=== PATIENT | female | born 1995 | race Hispanic/Latino ===

== ENCOUNTER → 2023-04-04 | Emergency (ER) | payer SELFPAY ==
[2023-04-04 09:21] LABS: Absolute Lymphocytes (CBC) 0.9 K/uL (0.7-4.9); Hematocrit 37.2 % (36.0-45.0); MCV 89.3 fL (80-100); MPV 8.5 fL (7.6-11.3); Platelets 237 thou/uL (152-406); RBC Red Blood Cell Count 4.17 M/uL (3.86-4.86)
[2023-04-04 09:29] LABS: Specific Gravity 1.007 (1.005-1.030); Urine Bacteria 20-50 /HPF (<20); Urine Bilirubin NEGATIVE (Negative); Urine Blood 3+ (OVER) (Negative); Urine Clarity Extremely Turbid (Clear); Urine Color Light-Brown (Yellow); Urine Glucose NEGATIVE (Negative); Urine Protein 1+ (Negative); Urine RBC >50 /HPF (None Seen); Urine Urobilinogen Normal (Normal); Urine pH 5.5 (5.0-7.0)
[2023-04-04 09:53] LABS: Potassium 3.5 mEq/L (3.5-5.1)
--- NOTE | 2023-04-04 11:14 | RAD REPORT ---
EXAM DESCRIPTION: US - Transvaginal OB - 04/04/2023 10:10 am CLINICAL HISTORY: bleeding COMPARISON: No comparisons TECHNIQUE: Sonographic grayscale and color flow images of a first-trimester were obtained through approach. FINDINGS: A single live intrauterine is identified. [place]-rump length measures 46.6 millimeters, corresponding to gestational age of 11 weeks, 3 days. heart rate: 188 BPM. Normal yolk sac is visualized. Crescentic hypoechoic fluid collection anterior to the gestational sac, measuring 3.5 cm in greatest axial dimension and 7 mm in greatest thickness. Maternal ovaries are unremarkable. No free fluid. IMPRESSION: 1. Single live intrauterine . 2. Hypoechoic 3.5 x 0.7 cm fluid collection anterior to the gestational sac concerning for a small penny bchorionic hemorrhage. 3. Calculated gestational age: 11 weeks, 3 days. Estimated due date by ultrasound: 10/21/2023.
--- NOTE | 2023-04-04 11:21 | ER ---
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 Coronavirus screen: At this time, the client does not indicate any symptoms associated with coronavirus-19. Ebola Screen: No symptoms or risks identified at this time. Initial Sepsis Screen: Does the patient meet any 2 criteria? No. Patient's initial sepsis screen is negative. Does the patient have a suspected source of infection? No. Patient's initial sepsis screen is negative. Risk Assessment: Do you want to hurt yourself or someone else? Patient reports no desire to harm self or others. Onset of symptoms was April 04, 2023. 08:52 Method Of Arrival: Ambulatory kc6 08:52 Acuity: SUSANNA 3 kc6 Triage Assessment: 08:53 General: Appears in no apparent distress. comfortable, well groomed, well developed, kc6 Behavior is calm, cooperative, appropriate for age. Pain: Complains of pain in suprapubic area Quality of pain is described as crampy. EENT: No signs and/or symptoms were reported regarding the EENT system. Neuro: Level of Consciousness is awake, alert, obeys commands, Oriented to person, place, time, situation, Appropriate for age. Cardiovascular: Capillary refill < 3 seconds. Respiratory: Airway is patent Trachea midline Respiratory effort is even, unlabored, Respiratory pattern is regular, symmetrical. GI: No signs and/or symptoms were reported involving the gastrointestinal system. : Reports vaginal bleeding that is bright red, with clots, heavy flow since this AM. Derm: No signs and/or symptoms reported regarding the dermatologic system. Skin is intact, is healthy with good turgor, Skin is pink, warm \T\ dry. Musculoskeletal: No signs and/or symptoms reported regarding the musculoskeletal system. Circulation, motion, and sensation intact. Capillary refill < 3 seconds, Range of motion: intact in all extremities. 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 - Social history:: Smoking status: Patient denies any tobacco usage or history of. - Family history:: not pertinent. Screenin:55 [facility] ED Fall Risk Assessment (Adult) History of falling in the last 3 months, kc6 including since admission No falls in past 3 months (0 pts) Confusion or Disorientation No (0 pts) Intoxicated or Sedated No (0 pts) Impaired Gait No (0 pts) Mobility Assist Device Used No (0 pt) Altered Elimination No (0 pt) Score/Fall Risk Level 0 - 2 = Low Risk. Abuse screen: Denies threats or abuse. Denies injuries from another. Nutritional screening: No deficits noted. Tuberculosis screening: No symptoms or risk factors identified. Assessment: 08:55 Obstetrical Assessment: General assessment: awake and alert. Reassessment: please see the [facility] triage. 10:04 Reassessment: Patient appears in no apparent distress at this time. No changes from the [facility] previously documented assessment. Patient and/or family updated on plan of care and expected duration. Pain level reassessed. Patient is alert, oriented x 3, equal unlabored respirations, skin warm/dry/pink. 10:53 Reassessment: Patient appears in no apparent distress at this time. No changes from the [facility] previously documented assessment. Patient and/or family updated on plan of care and expected duration. Pain level reassessed. Patient is alert, oriented x 3, equal unlabored respirations, skin warm/dry/pink. 11:45 Reassessment: Patient appears in no apparent distress at this time. No changes from the [facility] previously documented assessment. Patient and/or family updated on plan of care and expected duration. Pain level reassessed. Patient is alert, oriented x 3, equal unlabored respirations, skin warm/dry/pink. Vital Signs: 08:52 BP 131 / 87; Pulse 95; Resp 16 S; Pulse Ox 99% on R/A; Weight 65.77 kg (R); Height 5 kc6 ft. 6 in. (R); 10:53 BP 122 / 95; Pulse 87; Resp 16 S; Pulse Ox 95% on R/A; kc6 08:52 Body Mass Index 23.40 (65.77 kg, 167.64 cm) kc6 ED Course: 08:44 Patient arrived in ED. rg4 08:48 Vivi Hills, RN is Primary Nurse. kc6 08:52 Arm band placed on Patient placed in an exam room, on a stretcher. ll1 08:53 Triage completed. kc6 08:55 Patient has correct armband on for positive identification. Bed in low position. Call kc6 light in reach. Side rails up X 1. Client placed on continuous cardiac and pulse oximetry monitoring. NIBP monitoring applied. 08:55 Patient maintains SpO2 saturation greater than 95% on room air. kc6 08:58 Martin Bañuelos MD is Attending Physician. rt 10:11 US Transvaginal Ob In Process Unspecified. EDMS 10:27 Ultrasound completed. Patient tolerated well. lc6 11:46 No provider procedures requiring assistance completed. IV discontinued, intact, kc6 bleeding controlled, No redness/swelling at site. Pressure dressing applied. Administered Medications: No medications were administered Medication: 11:46 VIS not applicable for this client. kc6 Outcome: 11:20 Discharge ordered by MD. rt 11:46 Discharged to home ambulatory, with significant other, kc6 11:46 Condition: good 11:46 Discharge instructions given to patient, significant other, Instructed on discharge instructions, follow up and referral plans. medication usage, Demonstrated understanding of instructions, follow-up care, medications, Prescriptions given X 1, 11:46 Patient left the ED. 6 Signatures: Dispatcher [employer] EDMS Jennifer Stanley rg4 Hilary Fox RN RN ll1 Vivi Hills, RN RN kc6 Martin Bañuelos MD MD rt Luly Moncada 6
--- NOTE | 2023-04-04 11:21 | EDPHYS ---
Physician Documentation [facility] Name: Denise Robb Age: 28 yrs Sex: Female : 1995 Arrival Date: 04/04/2023 Time: 08:41 Bed 16 Private MD: ED Physician Martin Bañuelos HPI: 04/04 09:05 This 28 yrs old Female presents to ER via Ambulatory with complaints of rt Vaginal Bleeding, + Preg <12wks. 09:05 Patient presents to the ED with first trimester vaginal bleeding, states that her last rt period was at the end of December. Believes that she is about 5 weeks . The patient developed bleeding today with small amount of cramping. The bleeding started as heavy, is slowing up. She is a currently. Denies other acute complaints, symptoms are moderate severity, no other aggravating or elevating factors.. 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 - Social history:: Smoking status: Patient denies any tobacco usage or history of. - Family history:: not pertinent. ROS: 09:05 Constitutional: Negative for fever, chills, and weight loss, Cardiovascular: Negative rt for chest pain, palpitations, and edema, Respiratory: Negative for shortness of breath, cough, wheezing, and pleuritic chest pain, Abdomen/GI: Negative for abdominal pain, nausea, vomiting, diarrhea, and constipation, MS/Extremity: Negative for injury and deformity, Skin: Negative for injury, rash, and discoloration, Neuro: Negative for headache, weakness, numbness, tingling, and seizure, Psych: Negative for depression, anxiety, suicide ideation, homicidal ideation, and hallucinations, 09:05 : Positive for vaginal bleeding, Negative for burning with urination, Exam: 09:05 Constitutional: This is a well developed, well nourished patient who is awake, alert, rt and in no acute distress. Head/Face: Normocephalic, atraumatic. Chest/axilla: Normal chest wall appearance and motion. Nontender with no deformity. No lesions are appreciated. Cardiovascular: Regular rate and rhythm with a normal S1 and S2. No gallops, murmurs, or rubs. Normal PMI, no JVD. No pulse deficits. Respiratory: Lungs have equal breath sounds bilaterally, clear to auscultation and percussion. No rales, rhonchi or wheezes noted. No increased work of breathing, no retractions or nasal flaring. Abdomen/GI: Soft, non-tender, with normal bowel sounds. No distension or tympany. No guarding or rebound. No evidence of tenderness throughout. Skin: Warm, dry with normal turgor. Normal color with no rashes, no lesions, and no evidence of cellulitis. MS/ Extremity: Pulses equal, no cyanosis. Neurovascular intact. Full, normal range of motion. Neuro: Awake and alert, GCS 15, oriented to person, place, time, and situation. Cranial nerves II-XII grossly intact. Motor strength 5/5 in all extremities. Sensory grossly intact. Cerebellar exam normal. Normal gait. Psych: Awake, alert, with orientation to person, place and time. Behavior, mood, and affect are within normal limits. Vital Signs: 08:52 BP 131 / 87; Pulse 95; Resp 16 S; Pulse Ox 99% on R/A; Weight 65.77 kg (R); Height 5 kc6 ft. 6 in. (R); 10:53 BP 122 / 95; Pulse 87; Resp 16 S; Pulse Ox 95% on R/A; kc6 08:52 Body Mass Index 23.40 (65.77 kg, 167.64 cm) kc6 MDM: 08:58 Patient medically screened. rt 11:22 Differential diagnosis: Threatened AB, ectopic , miscarriage. Data reviewed: rt vital signs, nurses notes, lab test result(s), radiologic studies. Counseling: I had a detailed discussion with the patient and/or guardian regarding the historical points, exam findings, and any diagnostic results supporting the discharge/admit diagnosis, lab results, radiology results, the need for outpatient follow up. 04/04 09:04 Order name: Abo/rh Typing; Complete Time: 11:14 rt 04/04 09:04 Order name: Basic Metabolic Panel; Complete Time: : rt 04/04 09:04 Order name: CBC with Diff; Complete Time: 11:14 rt 04/04 09:04 Order name: Quantitative Hcg; Complete Time: 11:14 rt 04/04 09:04 Order name: Urinalysis w/ reflexes; Complete Time: 11:14 rt 04/04 09:33 Order name: Urine Culture EDMS 04/04 09:04 Order name: US Transvaginal Ob; Complete Time: 11:14 rt 04/04 09:04 Order name: IV Saline Lock; Complete Time: 09:15 rt 04/04 09:04 Order name: Labs collected and sent; Complete Time: 09:15 rt 04/04 09:04 Order name: NPO; Complete Time: 09:05 rt Administered Medications: No medications were administered Disposition Summary: 04/04/23 11:20 Discharge Ordered Notes: Location: Home rt Problem: new rt Symptoms: have improved rt Condition: Stable rt Diagnosis - Threatened rt - Asymptomatic bacteriuria rt Followup: rt - With: Private Physician - When: 2 - 3 days - Reason: Discharge Instructions: - Discharge Summary Sheet rt - Threatened Miscarriage rt Forms: - Medication Reconciliation Form rt - Thank You Letter rt - Antibiotic Education rt - Prescription Opioid Use rt - Patient Portal Instructions rt - Leadership Thank You Letter rt Prescriptions: - cephalexin 500 mg Oral capsule - take 1 capsule ORAL route 3 times per day for 7 days; 21 capsule; Refills: 0, rt Product Selection Permitted Signatures: Dispatcher [employer] Vivi Aguilar, RN RN kc6 Martin Bañuelos MD MD rt
[2023-04-04 12:08] VITALS: BP 122/95; O2SAT 95
== END ==
LOC: ER 08:41
DX: O20.0 Threatened abortion (principal); R82.71 Bacteriuria; Z3A.11 11 weeks gestation of pregnancy
CPT/HCPCS: 36415; 76817; 80048; 81001; 84702; 85025; 86900; 86901; 87086; 87088